=== PATIENT | male | born 1985 | race Caucasian/White ===

== ENCOUNTER 2016-10-11 20:32 | Emergency (ER) | payer MEDICARE, OTHER | END 2016-10-11 22:20 | disposition home or self-care (01) | LOC: ER1 20:32 | DX: J02.0 Streptococcal pharyngitis (principal); I10 Essential (primary) hypertension; Z79.899 Other long term (current) drug therapy | CPT/HCPCS: 87081; 87880; 96372; 99283; J0561 ==

== ENCOUNTER 2016-12-10 21:49 | Emergency (ER) | payer MEDICARE, OTHER | END 2016-12-10 23:45 | disposition home or self-care (01) | LOC: ER1 21:49 | DX: S20.462A Insect bite (nonvenomous) of left back wall of thorax, initial encounter (principal); S30.860A Insect bite (nonvenomous) of lower back and pelvis, initial encounter; I10 Essential (primary) hypertension; W57.XXXA Bitten or stung by nonvenomous insect and other nonvenomous arthropods, initial encounter | CPT/HCPCS: 99281 ==

== ENCOUNTER 2021-01-23 05:37 | Emergency (ER) | payer MEDICARE, OTHER ==
[~2021-01-23 05:37] MED LIST: ERYTHROMYCIN O3.5 GM OU; LODINE CAP 300300 MG PO; ZITHROMAX250 MG PO
== END 2021-01-23 06:25 | disposition home or self-care (01) ==
LOC: ER1 05:37
DX: S69.91XA Unspecified injury of right wrist, hand and finger(s), initial encounter (principal); I10 Essential (primary) hypertension; W22.8XXA Striking against or struck by other objects, initial encounter; Y92.59 Other trade areas as the place of occurrence of the external cause
CPT/HCPCS: 73130; 99283